=== PATIENT | male | born 1940 | race African-American/Black ===

== ENCOUNTER 2019-01-13 09:40 | Outpatient (CLI) | payer MEDICARE ==
[2019-01-13 10:23] LABS: Hematocrit 30.6 % (35.5-45.6); Hemoglobin 9.8 gm/dl (11.8-15.2); Mean Corpuscular HGB Conc 32 % (32-34); Mean Corpuscular Volume 80 fl (84-94); Platelet Count 332 K/mm3 (140-440); Red Blood Count 3.81 M/mm3 (3.65-5.03)
[2019-01-13 10:43] LABS: Alanine Aminotransferase 19 units/L (7-56); Albumin 3.9 g/dL (3.9-5); BUN/Creatinine Ratio 12; Blood Urea Nitrogen 13 mg/dL (9-20); Calcium 8.9 mg/dL (8.4-10.2); Chol/HDL Ratio 2.03 %; HDL Cholesterol 56 mg/dL (40-59); Hemolysis Index 1; LDL Cholesterol,Direct 53 mg/dL (50-130)
== END 2019-01-13 09:41 | disposition home or self-care (01) ==
LOC: LAB 09:40
PROVIDERS: ATTEND Internal Medicine
DX: I10 Essential (primary) hypertension (principal)
CPT/HCPCS: 36415; 36600; 80053; 80061; 82803; 84436; 84443; 85027; 88112; 88312

== ENCOUNTER 2019-02-09 08:58 | Outpatient (CLI) | payer MEDICARE ==
--- NOTE | 2019-02-09 12:09 | PET Report ---
PET/CT HISTORY: R91.8. Left upper lobe pulmonary nodules TECHNIQUE: The patient's fasting blood glucose was 99. The patient weighed 73 kg The patient was in jected with 15.2 mCi of FDG in the right hand at 0942 hours and imaging was started at 10:30. The pa tient was imaged from the skull base to the thighs. All CT scans at this location are performed using CT dose reduction for ALARA by means of automated exposure control. COMPARISON: None FINDINGS: FDG findings: A large area of consolidation is identified in the subpleural areas of the right apex/ right upper lobe measuring up to 11.9 x 7.5 cm in axial plane. Max SUV of this consolidation measures 10.9. An 8 mm nodule is identified in the posterior left upper lobe which has the appearance of scar . This lesion is hypometabolic with maximum SUV measuring 0.9. No additional areas of hypermetabolic activity are identified. Mean liver SUV measures 4.6. Non-FDG findings: Large right apical opacity is again noted. There appear to be a few calcified gran ulomas within this consolidation. Calcified right paratracheal lymph nodes are also identified. The r emainder of the lungs are generally clear. No additional suspicious lung lesion. Heart size is within normal limits. No pathologic mediastinal adenopathy. The liver, biliary system, pancreas, spleen, kidneys and adrenal glands are unremarkable. A large rig ht paraumbilical hernia with a 4.5 cm neck is identified containing a few small bowel loops. There is no evidence for obstruction. 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 There is mild trabeculation of the bladd er wall. No abdominal or pelvic mass or adenopathy is identified. No suspicious bony lesion. IMPRESSION: There is a large right apical consolidation with hypermetabolic activity with maximum SUV measuring 1 0.9. Neoplasm cannot be excluded. An 8 mm hypometabolic density is noted in the left upper lobe which has the appearance of a scar. No evidence for abnormal hypermetabolic activity beneath the diaphragm. Moderate to large right paraumbilical hernia containing small bowel loops. No obstruction. Signer Name: Dean Gould Jr, MD Signed: 02/09/2019 12:04 PM Workstation Name: [id number]
== END 2019-02-09 08:59 | disposition home or self-care (01) ==
LOC: PET 08:58
PROVIDERS: ATTEND Internal Medicine
DX: R91.8 Other nonspecific abnormal finding of lung field (principal); K42.9 Umbilical hernia without obstruction or gangrene
CPT/HCPCS: 78815; 82962; A9552

== ENCOUNTER 2019-03-28 07:04 | Day surgery (SDC) | payer MEDICARE ==
[2019-03-28] MEDS ORDERED: HYDROmorphone 1 MG/1 ML INJ IV NR (08:57)
[2019-03-28] MEDS ORDERED: ONDANSETRON 4 MG/2 ML INJ IV NR (08:58)
[2019-03-28 09:20] LABS: INR 0.97 (0.87-1.13)
[2019-03-28 09:21] LABS: Partial Thromboplastin Time 33.3 Sec. (24.2-36.6)
[2019-03-28] MEDS ORDERED: SODIUM CHLORIDE 0.9% 500 ML 0 ML ONE (09:35)
[2019-03-28 09:37] LABS: Hematocrit 28.6 % (35.5-45.6); Hemoglobin 9.2 gm/dl (11.8-15.2); Mean Corpuscular HGB Conc 32 % (32-34); Mean Corpuscular Volume 80 fl (84-94); Platelet Count 311 K/mm3 (140-440); Red Blood Count 3.57 M/mm3 (3.65-5.03); Red Cell Distribution Width 17.2 % (13.2-15.2)
--- NOTE | 2019-03-28 12:44 | Cat Scan Report ---
CT-GUIDED LUNG BIOPSY, RIGHT INDICATION : Right upper lobe lesion. COMPARISON: PET/CT performed 02/09/2019 PROCEDURE: The risks (including but not limited to bleeding and infection) and benefits were explain ed to the patient and informed consent was obtained. All CT scans at this location are performed usi ng CT dose reduction for ALARA by means of automated exposure control. A time out procedure was performed. The procedure site was prepped and draped in the usual sterile f ashion and lidocaine was used for local anesthesia. Using CT guidance, a 19-gauge introducer needle was advanced to the leading edge of the large opacity in the right upper lobe from the posterior approach. 3 separate 2.2 cm 20-gauge core biopsies were o btained for pathology. Pathology was present and deemed the samples adequate. Follow-up scan demonstr ates no evidence for pneumothorax. The patient tolerated the procedure well with no complications. IMPRESSION: Successful CT-guided biopsy of the right upper lobe opacity/lesion. Signer Name: Dean Gould Jr, MD Signed: 03/28/2019 12:39 PM Workstation Name: [id number]
--- NOTE | 2019-03-28 13:48 | XRay Report ---
CHEST 1 VIEW INDICATION: Right upper lobe mass, recent CT-guided right lung biopsy.. COMPARISON: None FINDINGS: Support devices: None. Heart: Within normal limits. Lungs/Pleura: Consolidation/mass at the right apex is again noted. The remainder of the lungs are wel l-aerated. No pneumothorax is visualized. Additional findings: None. IMPRESSION: No evidence for pneumothorax. Signer Name: Dean Gould Jr, MD Signed: 03/28/2019 1:43 PM Workstation Name: [id number]
[2019-03-28 15:06] VITALS: BP 145/64
== END 2019-03-28 14:40 | disposition home or self-care (01) ==
LOC: CATHLABREC 07:04 → EDSTATUS 07:30 → CATHLABREC 14:40
PROVIDERS: ATTEND Internal Medicine
DX: J84.10 Pulmonary fibrosis, unspecified (principal); J18.9 Pneumonia, unspecified organism; R91.8 Other nonspecific abnormal finding of lung field; E78.00 Pure hypercholesterolemia, unspecified; I10 Essential (primary) hypertension; K21.9 Gastro-esophageal reflux disease without esophagitis; Z98.890 Other specified postprocedural states; Z79.899 Other long term (current) drug therapy; Z85.118 Personal history of other malignant neoplasm of bronchus and lung; Z86.73 Personal history of transient ischemic attack (TIA), and cerebral infarction without residual deficits; Z79.01 Long term (current) use of anticoagulants
CPT/HCPCS: 32405; 36415; 71045; 77012; 85027; 85610; 85730; 87102; 87116; 87220; 88305; 88312; 88333; 96374; 96375; J1170; J2405; 88173; J7040